=== PATIENT | female | born 1960 | race African-American/Black ===

== ENCOUNTER 2019-03-15 07:30 | Outpatient (CLI) | payer OTHER, SELFPAY ==
--- NOTE | ~2019-03-15 | US_ITS ---
EXAMINATION: US venous doppler [facility] DATE: 03/15/2019 08:35 INDICATION: Left lower limb swelling. TECHNIQUE: Grayscale ultrasound images without and with compression and Doppler ultrasound images of the left lower extremity veins were obtained. COMPARISON: None. FINDINGS: The visualized portions of left common femoral vein, profunda (deep) femoral vein, femoral vein, popl iteal vein, peroneal veins, posterior tibial veins, and greater saphenous vein outflow are patent. IMPRESSION: 1. No deep venous thrombosis. Reviewed, dictated and finalized at location A. AND ANKLE SURGEON
[2019-03-15 08:17] LABS: Blood Urea Nitrogen 14 mg/dL (7-17); Calcium 10.5 mg/dL (8.4-10.2); Carbon Dioxide 32 mmol/L (22-30); Chloride 100 mmol/L (98-107); Estimated Glomerular Filt Rate > 60; Glucose 96 mg/dL (65-105); Potassium 3.6 mmol/L (3.4-5.0); Sodium 139 mmol/L (137-145)
== END 2019-03-15 07:31 | disposition home or self-care (01) ==
LOC: ANHIMG 07:33
PROVIDERS: PCP Family Medicine; Visit Provider Physician Assistant
DX: R22.9 Localized swelling, mass and lump, unspecified (principal); R25.2 Cramp and spasm
CPT/HCPCS: 36415; 80048; 93971

== ENCOUNTER 2019-08-09 07:31 | Outpatient (CLI) | payer OTHER, SELFPAY ==
--- NOTE | ~2019-08-09 | MM_ITS ---
EXAMINATION: MM screening eunice BI w laron HISTORY: Screening mammogram TECHNIQUE: Craniocaudal and mediolateral oblique 3-D tomosynthesis images were obtained and synthetic 2-D images were generated. CAD analysis was submitted and interpreted. COMPARISON: 06/16/2018, 05/12/2017, 03/25/2016 bilateral digital screening mammogram examinations BREAST PARENCHYMAL COMPOSITION: The breasts are almost entirely fatty. FINDINGS: Scattered bilateral benign calcifications. There is no evidence of suspicious mass, calcifi cation, or architectural distortion to suggest malignancy in either breast. There has been no suspici ous interval change. IMPRESSION: 1. No mammographic evidence of malignancy. 2. Recommend routine screening mammography in one year. BI-RADS Category 2: Benign finding(s). Reviewed, dictated and finalized at location A.
== END 2019-08-09 07:32 | disposition home or self-care (01) ==
LOC: ANHIMG 07:33
PROVIDERS: PCP Family Medicine; Visit Provider Obstetrics & Gynecology
DX: Z12.31 Encounter for screening mammogram for malignant neoplasm of breast (principal)
CPT/HCPCS: 77063; 77067

== ENCOUNTER 2020-02-21 07:41 | Outpatient (CLI) | payer OTHER, SELFPAY ==
[2020-02-21 08:14] LABS: Alanine Aminotransferase 15 U/L (4-35); Alkaline Phosphatase 78 U/L (38-126); Anion Gap 4 mmol/L (8-16); Aspartate Amino Transferase 23 U/L (14-36); Bilirubin,Total 0.5 mg/dL (0.2-1.3); Blood Urea Nitrogen 12 mg/dL (7-17); Calcium 10.2 mg/dL (8.4-10.2); Carbon Dioxide 32 mmol/L (22-30); Chloride 102 mmol/L (98-107); Cholesterol 213 mg/dL (0-200); Estimated Glomerular Filt Rate > 60; Glucose 99 mg/dL (65-105); HDL Direct 53 mg/dL; Potassium 4.1 mmol/L (3.4-5.0); Sodium 138 mmol/L (137-145); Triglycerides 73 mg/dL (<150)
[2020-02-21 08:25] LABS: LDL Cholesterol Direct 120 mg/dL
[2020-02-21 08:31] LABS: T4 Thyroxine 9.44 ug/dL (5.53-11.0)
[2020-02-21 08:50] LABS: Vitamin D 25 Hydroxy 29.8 ng/mL
== END 2020-02-21 07:42 | disposition home or self-care (01) ==
PROVIDERS: PCP Family Medicine; Visit Provider Family Medicine
DX: I10 Essential (primary) hypertension (principal); E03.9 Hypothyroidism, unspecified; E55.9 Vitamin D deficiency, unspecified; Z13.6 Encounter for screening for cardiovascular disorders
CPT/HCPCS: 36415; 80053; 80061; 82306; 84436; 84443

== ENCOUNTER 2020-11-27 07:58 | Outpatient (CLI) | payer OTHER, SELFPAY ==
[2020-11-27 10:00] LABS: Alanine Aminotransferase 13 U/L (4-35); Albumin Level 4.4 g/dL (3.5-5.1); Alkaline Phosphatase 69 U/L (38-126); Anion Gap 3 mmol/L (8-16); Aspartate Amino Transferase 21 U/L (14-36); Bilirubin,Total 0.4 mg/dL (0.2-1.3); Blood Urea Nitrogen 11 mg/dL (7-17); Calcium 10.7 mg/dL (8.4-10.2); Carbon Dioxide 33 mmol/L (22-30); Chloride 104 mmol/L (98-107); Estimated Glomerular Filt Rate > 60; Glucose 100 mg/dL (65-110); Potassium 4.3 mmol/L (3.4-5.0); Sodium 140 mmol/L (137-145)
[2020-11-27 11:48] LABS: T4 Thyroxine 5.67 ug/dL (5.53-11.0)
== END 2020-11-27 07:59 | disposition home or self-care (01) ==
PROVIDERS: PCP Family Medicine; Visit Provider Family Medicine
DX: E03.9 Hypothyroidism, unspecified (principal); I10 Essential (primary) hypertension
CPT/HCPCS: 36415; 80053; 84436; 84443

== ENCOUNTER 2021-03-13 07:49 | Outpatient (CLI) | payer OTHER, SELFPAY ==
[2021-03-13 08:34] LABS: Anion Gap 1 mmol/L (8-16); Blood Urea Nitrogen 10 mg/dL (7-17); Calcium 10.4 mg/dL (8.4-10.2); Carbon Dioxide 31 mmol/L (22-30); Chloride 106 mmol/L (98-107); Cholesterol 204 mg/dL (0-200); Estimated Glomerular Filt Rate > 60; Glucose 99 mg/dL (65-110); HDL Direct 49 mg/dL; Potassium 4.1 mmol/L (3.4-5.0); Sodium 138 mmol/L (137-145); Triglycerides 90 mg/dL (<150)
[2021-03-13 08:46] LABS: LDL Cholesterol Direct 100 mg/dL
[2021-03-13 09:52] LABS: Free T4 Free Thyroxine 0.69 ng/mL (0.78-2.19)
== END 2021-03-13 07:50 | disposition home or self-care (01) ==
LOC: ANHLAB 07:52
PROVIDERS: PCP Family Medicine; Visit Provider Physician Assistant
DX: E05.90 Thyrotoxicosis, unspecified without thyrotoxic crisis or storm (principal); E78.00 Pure hypercholesterolemia, unspecified; I10 Essential (primary) hypertension
CPT/HCPCS: 36415; 80048; 80061; 84439; 84443

== ENCOUNTER 2021-05-28 07:37 | Outpatient (CLI) | payer OTHER, SELFPAY ==
--- NOTE | ~2021-05-28 | MM_ITS ---
EXAMINATION: MM screening eunice BI w laron HISTORY: Screening TECHNIQUE: Craniocaudal and mediolateral oblique 3-D tomosynthesis images were obtained and synthetic 2-D images were generated. CAD analysis was submitted and interpreted. COMPARISON: Comparison to multiple prior studies sequentially, with oldest reviewed study dated 08/08. BREAST PARENCHYMAL COMPOSITION: Breast composed of scattered areas of fibroglandular density FINDINGS: Stable benign-appearing bilateral breast calcifications. There is no evidence of suspicious mass, calcification, or architectural distortion to suggest malignancy in either breast. There has b een no suspicious interval change. IMPRESSION: 1. No mammographic evidence of malignancy. 2. Recommend routine screening mammography in one year. BI-RADS Category 2: Benign finding(s). Reviewed, dictated and finalized at location A.
== END 2021-05-28 07:38 | disposition home or self-care (01) ==
PROVIDERS: PCP Family Medicine; Visit Provider Family Medicine
DX: Z12.31 Encounter for screening mammogram for malignant neoplasm of breast (principal)
CPT/HCPCS: 77063; 77067

== ENCOUNTER 2021-08-11 13:34 | Outpatient (CLI) | payer OTHER, SELFPAY ==
--- NOTE | ~2021-08-11 | MM_ITS ---
EXAMINATION: MM diagnostic eunice LT w laron HISTORY: Left breast tenderness. TECHNIQUE: Additional 3-D tomosynthesis images of the left breast were performed and synthetic 2-D im ages were generated. CAD analysis was submitted and interpreted. COMPARISON: Comparison to multiple prior studies sequentially, with oldest reviewed study dated 03/25. BREAST PARENCHYMAL COMPOSITION: Breast composed of scattered areas of fibroglandular density FINDINGS: There are no suspicious masses, calcifications or architectural distortion in the left delma st to suggest malignancy. Stable benign-appearing breast calcifications. IMPRESSION: 1. No evidence for malignancy in the left breast. 2. Routine yearly screening mammogram and regular clinical breast examination are recommended. BI-RADS Category 1: Negative Reviewed, dictated and finalized at location A. IMPRESSION: 1. No evidence for malignancy in the left breast. 2. Routine yearly screening mammogram and regular clinical breast examination a re recommended. BI-RADS Category 1: Negative
== END 2021-08-11 13:35 | disposition home or self-care (01) ==
PROVIDERS: PCP Family Medicine; Visit Provider Obstetrics & Gynecology Gynecology
DX: N64.4 Mastodynia (principal)
CPT/HCPCS: 77061; 77065; G0279

== ENCOUNTER 2022-02-04 07:23 | Outpatient (CLI) | payer OTHER, SELFPAY ==
[2022-02-04 07:49] LABS: Alanine Aminotransferase 17 U/L (6-35); Albumin Level 4.2 g/dL (3.5-5.1); Alkaline Phosphatase 76 U/L (38-126); Anion Gap 3 mmol/L (8-16); Aspartate Amino Transferase 20 U/L (14-36); Bilirubin,Total 0.6 mg/dL (0.2-1.3); Blood Urea Nitrogen 13 mg/dL (7-17); Calcium 10.2 mg/dL (8.4-10.2); Carbon Dioxide 31 mmol/L (22-30); Chloride 109 mmol/L (98-107); Cholesterol 218 mg/dL (0-200); Estimated Glomerular Filt Rate > 60; Glucose 101 mg/dL (65-110); HDL Direct 53 mg/dL; Potassium 4.1 mmol/L (3.4-5.0); Sodium 143 mmol/L (137-145); Triglycerides 85 mg/dL (<150)
[2022-02-04 08:01] LABS: LDL Cholesterol Direct 110 mg/dL
== END 2022-02-04 07:24 | disposition home or self-care (01) ==
PROVIDERS: PCP Physician Assistant; Visit Provider Physician Assistant
DX: I10 Essential (primary) hypertension (principal)
CPT/HCPCS: 36415; 80053; 80061; 84439; 84443

== ENCOUNTER 2022-11-17 06:59 | Outpatient (CLI) | payer OTHER, SELFPAY ==
[2022-11-17 07:59] LABS: Alanine Aminotransferase 19 U/L (6-35); Albumin Level 4.2 g/dL (3.5-5.1); Alkaline Phosphatase 71 U/L (38-126); Anion Gap 3 mmol/L (8-16); Aspartate Amino Transferase 23 U/L (14-36); Bilirubin,Total 0.5 mg/dL (0.2-1.3); Blood Urea Nitrogen 11 mg/dL (7-17); Calcium 10.5 mg/dL (8.4-10.2); Carbon Dioxide 33 mmol/L (22-30); Chloride 103 mmol/L (98-107); Cholesterol 218 mg/dL (0-200); Estimated Glomerular Filt Rate > 60; Glucose 90 mg/dL (65-110); HDL Direct 56 mg/dL; Potassium 3.9 mmol/L (3.4-5.0); Sodium 139 mmol/L (137-145); Triglycerides 98 mg/dL (<150)
[2022-11-17 08:11] LABS: LDL Cholesterol Direct 110 mg/dL
[2022-11-17 09:25] LABS: Vitamin D 25 Hydroxy 42.1 ng/mL
== END 2022-11-17 07:00 | disposition home or self-care (01) ==
LOC: ANHLAB 07:02
PROVIDERS: PCP Physician Assistant; Visit Provider Physician Assistant
DX: E55.9 Vitamin D deficiency, unspecified (principal); I10 Essential (primary) hypertension; E05.90 Thyrotoxicosis, unspecified without thyrotoxic crisis or storm; E78.00 Pure hypercholesterolemia, unspecified
CPT/HCPCS: 36415; 80053; 80061; 82306; 84443

== ENCOUNTER 2022-11-24 07:59 | Outpatient (CLI) | payer OTHER, SELFPAY ==
--- NOTE | ~2022-11-24 | XR_ITS ---
Right Hand Technique: PA, oblique, and lateral views were obtained. Clinical History: Pain Findings: No acute fracture or dislocation is seen. Osseous alignment is anatomic. Degenerative versu s possible erosive change at the STT articulations. Remaining joint spaces are intact. Soft tissues a re unremarkable. Impression: . Degenerative change versus possible erosive change at the STT articulations. Remaining joint spaces are unremarkable. Reviewed, dictated and finalized at location M. Impression: . Degenerative change versus possible erosive change at the STT articulations. Remaining joint spaces are unremarkable.
--- NOTE | ~2022-11-24 | XR_ITS ---
Right wrist Technique: PA, oblique, lateral, and ulnar deviation views were obtained. Clinical History: Pain Findings: No acute fracture or dislocation is seen. Osseous alignment is anatomic. There is degenerat wagner change at the STT articulations. Soft tissues are unremarkable. Impression: No fracture or dislocation seen. Degenerative change of the STT articulations. Reviewed, dictated and finalized at location . Impression: No fracture or dislocation seen. Degenerative change of the STT articulations.
== END 2022-11-24 08:00 | disposition home or self-care (01) ==
PROVIDERS: PCP Physician Assistant; Visit Provider Physician Assistant
DX: M79.641 Pain in right hand (principal); M25.531 Pain in right wrist; R93.6 Abnormal findings on diagnostic imaging of limbs
CPT/HCPCS: 73110; 73130

== ENCOUNTER 2022-12-10 07:20 | Outpatient (CLI) | payer OTHER, SELFPAY ==
[2022-12-10 07:51] LABS: Basophils Absolute Auto 0.1 K/mm3 (0.0-0.1); Eosinophils Absolute Auto 0.1 K/mm3 (0-0.3); Eosinophils Percent Auto 1.5 % (0-4.4); Hematocrit 39.9 % (37.0-47.0); Hemoglobin 12.7 g/dL (12.0-15.0); Immature Granulocyte Absolute 0.01 K/mm3 (0.00-0.031); Immature Granulocyte Percent A 0.1 % (0-0.5); Lymphocytes Absolute Auto 2.29 K/mm3 (0.9-3.2); Lymphocytes Percent Auto 33.8 % (18.3-44.2); Mean Corpuscular HGB Conc 31.8 g/dl (32-36); Mean Corpuscular Hemoglobin 28.7 pg (26-34); Mean Corpuscular Volume 90.3 fl (80-100); Mean Platelet Volume 11.4 fl (7.4-10.4); Monocytes Absolute Auto 0.4 K/mm3 (0.1-0.6); Neutrophils Absolute Auto 3.9 K/mm3 (1.3-6.7); Neutrophils Percent Auto 57.6 % (45.5-73.1); Platelet Count Result 238 k/mm3 (150-375); Red Blood Count 4.42 M/mm3 (4.2-5.4); Red Cell Distribution Width 13.9 % (11.5-14.5); White Blood Count 6.8 K/mm3 (4.5-10.0)
[2022-12-10 08:06] LABS: Uric Acid 5.8 mg/dL (2.5-7.5)
== END 2022-12-10 07:21 | disposition home or self-care (01) ==
LOC: ANHLAB 07:22
PROVIDERS: PCP Physician Assistant; Visit Provider Physician Assistant
DX: M25.539 Pain in unspecified wrist (principal); R53.83 Other fatigue
CPT/HCPCS: 36415; 84550; 85025

== ENCOUNTER 2023-10-25 01:34 | Day surgery (SDC) | payer OTHER, SELFPAY ==
[2023-10-10 12:16] VITALS: BMI 42.3
[2023-10-25 09:22] VITALS: BP 163/102; PULSE 104; RESP 18; TEMP 36.1; O2SAT 99
[2023-10-25] MEDS: LACTATED RINGERS 1,000 ML 150 ML IV CONT (09:38)
--- NOTE | 2023-10-25 09:58 | WPDANESEPPF ---
Anes - Initial Pre Proc Eval Procedure: Operation Date: 10/25/23 10:30 Proposed Procedures p Colonoscopy - Jeronimo Johnston MD Date/Time: 10/25/23 09:58 Surgeon: Jeronimo Johnston MD Pre Op Diagnosis: Positive cologuard Patient Data Age: 63 Gender: F Height: 1.78 m Weight: 133.3 kg Last Vital Signs Temp 97.0 F L 10/25/23 09:22 Pulse 104 H 10/25/23 09:22 Resp 18 10/25/23 09:22 BP 163/102 H 10/25/23 09:22 Pulse Ox 99 10/25/23 09:22 O2 Del Method Room Air 10/25/23 09:22 Allergies Allergy/AdvReac Type Severity Reaction Status Date / Time No Known Allergies Allergy Verified 10/10/23 12:17 Home Medications Medication Instructions Recorded Confirmed Type hydrochlorothiazide 25 mg tablet 25 mg PO DAILY 10/06/23 10/10/23 History methimazole 5 mg tablet 5 mg PO DAILY 10/06/23 10/10/23 History terbinafine HCl 250 mg tablet 250 mg PO DAILY 10/06/23 10/10/23 History Patient hx anesthesia problems: none Family hx anesthesia problems: none Results Review: All pre-operative results and documents have been reviewed as part of the pre-operative evaluation. [facility] Past Medical History Medical History Acute cystitis without hematuria Body mass index [BMI] 33.0-33.9, adult (12/16/16) Body mass index [BMI] 34.0-34.9, adult (01/12/18) Chronic back pain Chronic chest wall pain [place] of foot Encounter for screening colonoscopy Encounter for screening mammogram for breast cancer Essential (primary) hypertension Ganglion cyst of right foot Hallux valgus (acquired), right foot Hammertoes of both feet Heartburn Medication monitoring encounter Other chronic pain Overweight (12/25/15) Plantar fascial fibromatosis of both feet Stress incontinence (female) (male) Thyrotoxicosis with toxic multinodular goiter without thyrotoxic crisis or storm Thyrotoxicosis, unspecified without thyrotoxic crisis or storm Vitamin D deficiency, unspecified Surgical History Surgical History H/O tubal ligation History of appendectomy Family History Family History Mother Family history of thyroid disease Cerebrovascular accident Family history of arthritis Family history of heart disease in male family member before age 55 Family history of seizure disorder Patient's mother is Sibling Family history of thyroid disease Patient's sister is in good health Father Family history of alcoholism Family history of lung cancer Other HLD (hyperlipidemia) Heart disease Hypertension Social History Social History Smoking packs per day: 1 Smoking cigarettes per day: 20.0 Years smoked: 47 Smoking pack-years: 47.00 Smoking status: Current every day smoker Tobacco type: cigarettes Alcohol intake: current Substance use: never Substance use type: does not use Living arrangements: with family Occupation/Education: occupation Gender identity (if verbalized by the patient): Female Spiritual care concerns: No Anes - Eval Final PreProcedure Day of Procedure 10/25/23 09:58 Patient weight: morbidly obese Heart: regular rate and rhythm Lungs: clear to auscultation Airway: Mallampati scale class III Neurological: alert and oriented Last oral intake: >/= 8 hours ASA classification: III Emergent: no Anesthetic plan: proceed Anesthesia type and monitoring: general GIVS and standard monitoring Results Review: All pre-operative results and documents have been reviewed as part of the pre-operative evaluation. Informed Consent: The patient's anesthetic plan and its attendant risks and benefits were discussed with the patient/family/POA. Questions were solicited and answers provided to the satisfaction of the patient/
--- NOTE | 2023-10-25 10:27 | PM.HPGS ---
History of Present Illness History of Present Illness Consent: Risks, benefits, and alternatives have been discussed and questions answered. Patient agrees to proceed with procedure. Chief complaint: Positive cologuard Narrative: Linda Lennon is a 63 year old female here for first colonoscopy, + cologuard Review of Systems Review of Systems: All systems reviewed & are unremarkable except as noted in HPI and below PMFSH Past Medical History Medical History (Updated 10/25/23 @ 10:27 by Jeronimo Johnston MD) Acute cystitis without hematuria Body mass index [BMI] 33.0-33.9, adult (12/16/16) Body mass index [BMI] 34.0-34.9, adult (01/12/18) Chronic back pain Chronic chest wall pain [place] of foot Encounter for screening colonoscopy Encounter for screening mammogram for breast cancer Essential (primary) hypertension Ganglion cyst of right foot Hallux valgus (acquired), right foot Hammertoes of both feet Heartburn Medication monitoring encounter Other chronic pain Overweight (12/25/15) Plantar fascial fibromatosis of both feet Positive colorectal cancer screening using Cologuard test Stress incontinence (female) (male) Thyrotoxicosis with toxic multinodular goiter without thyrotoxic crisis or storm Thyrotoxicosis, unspecified without thyrotoxic crisis or storm Vitamin D deficiency, unspecified Surgical History Surgical History H/O tubal ligation History of appendectomy Family History Family History Mother Family history of thyroid disease Cerebrovascular accident Family history of arthritis Family history of heart disease in male family member before age 55 Family history of seizure disorder Patient's mother is Sibling Family history of thyroid disease Patient's sister is in good health Father Family history of alcoholism Family history of lung cancer Other HLD (hyperlipidemia) Heart disease Hypertension Social History Social History Smoking packs per day: 1 Smoking cigarettes per day: 20.0 Years smoked: 47 Smoking pack-years: 47.00 Smoking status: Current every day smoker Tobacco type: cigarettes Alcohol intake: current Substance use: never Substance use type: does not use Living arrangements: with family Occupation/Education: occupation Gender identity (if verbalized by the patient): Female Spiritual care concerns: No Meds Home Medications and Allergies Home Medications Medication Instructions Recorded Confirmed Type hydrochlorothiazide 25 mg tablet 25 mg PO DAILY 10/06/23 10/10/23 History methimazole 5 mg tablet 5 mg PO DAILY 10/06/23 10/10/23 History terbinafine HCl 250 mg tablet 250 mg PO DAILY 10/06/23 10/10/23 History Allergies Allergy/AdvReac Type Severity Reaction Status Date / Time No Known Allergies Allergy Verified 10/10/23 12:17 Vital Signs Vital Signs - 24 hr 10/25/23 09:22 Temperature 97.0 F L Pulse Rate 104 H Respiratory Rate 18 Blood Pressure 163/102 H Pulse Oximetry 99 Oxygen Delivery Room Air Exam Const: General: comfortable and no acute distress HENMT: Face/Nose/Sinus: Normal nares present Eyes: General: appearance normal, both eyes and all related structures Neck: Neck: no JVD Resp: Auscultation: clear to auscultation bilaterally Cardio: Rate: regular rate Rhythm: regular rhythm GI: Inspection: non-distended GI Palp: Yes Soft to palpation Skin: General skin exam: normal color Neuro: General: gait normal Speech: normal speech Extrem: General: normal to inspection Psych: Mental Status: mental status grossly normal Assessment and Plan Assessment and plan (1) Positive colorectal cancer screening using Cologuard test: Code(s): R19.5 - Other fecal abnormalities Statu
[2023-10-25 10:54] VITALS: BP 119/82; PULSE 81; RESP 24; O2SAT 97
[2023-10-25 11:04] VITALS: BP 143/98; PULSE 84; RESP 22; O2SAT 100
[2023-10-25 11:14] VITALS: BP 146/101; PULSE 74; RESP 18; O2SAT 98
== END 2023-10-25 11:24 | disposition home or self-care (01) ==
PROVIDERS: PCP Physician Assistant; Visit Provider Internal Medicine Gastroenterology
PROC: 0DJD8ZZ Inspection of Lower Intestinal Tract, Via Natural or Artificial Opening Endoscopic (ICD-10-PCS; CPT 45378; principal; 2023-10-25 10:30)
DX: D12.2 Benign neoplasm of ascending colon (principal); D12.4 Benign neoplasm of descending colon; K64.8 Other hemorrhoids; I10 Essential (primary) hypertension; N39.3 Stress incontinence (female) (male); E55.9 Vitamin D deficiency, unspecified; M54.9 Dorsalgia, unspecified; G89.29 Other chronic pain; R07.89 Other chest pain; M20.11 Hallux valgus (acquired), right foot; M20.42 Other hammer toe(s) (acquired), left foot; M20.41 Other hammer toe(s) (acquired), right foot; M72.2 Plantar fascial fibromatosis; F17.210 Nicotine dependence, cigarettes, uncomplicated; E66.01 Morbid (severe) obesity due to excess calories; Z68.41 Body mass index [BMI] 40.0-44.9, adult; Z98.890 Other specified postprocedural states; Z98.51 Tubal ligation status; Z80.1 Family history of malignant neoplasm of trachea, bronchus and lung; Z82.49 Family history of ischemic heart disease and other diseases of the circulatory system
CPT/HCPCS: 45385; 88305; J2001; J2704; J7120

== ENCOUNTER 2023-11-10 08:30 | Outpatient (CLI) | payer OTHER, SELFPAY ==
--- NOTE | ~2023-11-10 | NM_ITS ---
EXAMINATION: NM katya stress w perfusion DATE: 11/10/2023 17:04 CDT INDICATION: Chest pain TECHNIQUE: Rest images were obtained following intravenous administration of 30 mCi Tc99m tetrofosmin (Myoview). The patient was infused intravenously with Lexiscan (regadenoson). Then, 9 point mCi Tc99 m tetrofosmin (Myoview) was administered intravenously, and stress images were obtained. Data was rec onstructed into short axis and horizontal and vertical long axis SPECT images. Gated SPECT images wer e also obtained. COMPARISON: None. FINDINGS: There is moderate sized reversible perfusion abnormality of the anterior and lateral vickers of the left ventricle, consistent with ischemia. No fixed perfusion abnormalities.. There is no segm ental wall motion abnormality. Left ventricular ejection fraction measures 79%. IMPRESSION: 1. Moderate size reversible perfusion abnormality of the anterior and lateral vickers of the left ventr icle, consistent with ischemia.. 2. Normal left ventricular ejection fraction measuring 79%. Reviewed, dictated and finalized at location B. IMPRESSION: 1. Moderate size reversible perfusion abnormality of the anterior and lateral w alls of the left ventricle, consistent with ischemia.. 2. Normal left ventricular ejection fraction measuring 79%.
--- NOTE | 2023-11-10 08:33 | ECHO_ITS ---
Patient Info Name: Linda Lennon Age: 63 years : 1960 Gender: Female Ht: 70 in Wt: 290 lbs BSA: 2.61 m2 HR: 83 bpm BP: 138 / 99 mmHg Technical Quality: Poor Exam Date: 11/10/2023 8:46 AM Exam Location: Echo Lab Patient Status: Outpatient Admit Date: 11/10/2023 Staff Ordering Physician: Ac Almaguer DO Juvenile Detention Officer: Stephanie Archer RDCS Attending Provider: Ac Almaguer DO Referring Physician: Tripp KENT; Exam Type: CA echo dop color flow w con Study Info Indications R60.0 - Localized edema Complete two-dimensional, color flow and Doppler transthoracic echocardiogram is performed with contrast to opacify the left ventricle and to improve the deliniation of the left ventricle endocardial borders. Contrast/Agitated Saline Contrast/Ag. Saline: Definity Amount: 3.00 ml Administered By: Stephanie Archer RDCS New IV Access: Inner Forearm and Left Reason for Poor Study: patient body habitus Summary 1. Definity contrast administered improved wall motion interpretation. 2. Left ventricular chamber dimension is normal. 3. Left ventricular systolic function is normal, estimated at 60-65%. 4. There is mild concentric increased left ventricular wall thickness. 5. The left ventricular diastolic function is grade I diastolic dysfunction. 6. E/e' 7 is not elevated. 7. The mitral valve has mildly calcified annulus. 8. There is trace tricuspid valve regurgitation. 9. No pulmonary hypertension, estimated pulmonary arterial systolic pressure is 12 mmHg. Left Ventricle E/e' 7 is not elevated. Definity contrast administered improved wall motion interpretation. Left ventricular chamber dimension is normal. Left ventricular systolic function is normal, estimated at 60-65%. There is mild concentric increased left ventricular wall thickness. The left ventricular diastolic function is grade I diastolic dysfunction. Right Ventricle Right ventricular chamber dimension is normal. Right ventricular systolic function is normal. Left Atria Left atrial chamber dimension is normal. Right Atria Right atrial chamber dimension is normal. Aortic Valve The aortic valve is trileaflet. There is no aortic valve stenosis. There is no aortic valve regurgitation. Pulmonic Valve There is no pulmonic regurgitation. Mitral Valve The mitral valve has mildly calcified annulus. There is no mitral valve stenosis. There is no mitral valve regurgitation. Tricuspid Valve There is trace tricuspid valve regurgitation. No pulmonary hypertension, estimated pulmonary arterial systolic pressure is 12 mmHg. Pericardium/Pleural There is no pericardial effusion. Inferior Vena Cava Normal inferior vena cava with >50% collapse upon inspiration consistent with normal right atrial pressure, 5 mmHg. Aorta The aortic root size at the sinus of Valsalva is normal. Left Ventricular Outflow Tract Name Value Normal LVOT 2D LVOT Diameter 1.99 cm LVOT Doppler LVOT Peak Gradient 4 mmHg LVOT Mean Gradient 3 mmHg LVOT VTI 19.33 cm LVOT VTI/AV VTI Ratio 0.[address]
--- NOTE | 2023-11-10 08:34 | EST_ITS ---
Patient Info Name: Linda Lennon Age: 63 years : 1960 Gender: Female Ht: 70 in Wt: 290 lbs BSA: 2.61 m2 Exam Date: 11/10/2023 10:36 AM Exam Location: Echo Lab Patient Status: Outpatient Admit Date: 11/10/2023 Staff Ordering Physician: Ac Almaguer DO Attending Provider: Ac Almaguer DO Exercise Technologist: Aurea Acosta RDCS Exercise Physician: Ac Almaguer DO Exam Type: CA stress katya w NM Study Info Indications R07.9 - Chest pain, unspecified R60.0 - Localized edema A regadenoson stress test was performed. Summary 1. 1. Negative lexiscan stress test for ischemic ST changes by ECG criteria. 2. 2. Stable hemodynamics throughout the test. 3. 3. Nuclear scan to follow and will be reported separately. Please correlate with it. 4. 4. Patient informed of the above results. Protocol: Lexiscan Stress ECG Details Stage: REST Duration (min): 16 min : 30 sec HR (bpm): 75 SBP (mmHg): 135 DBP (mmHg): 87 Stage: REST Duration (min): 22 min : 11 sec HR (bpm): 77 SBP (mmHg): 135 DBP (mmHg): 87 Stage: STAGE 1 Duration (min): 0 min : 59 sec HR (bpm): 97 SBP (mmHg): 145 DBP (mmHg): 95 Stage: RECOVERY Duration (min): 1 min : 0 sec HR (bpm): 93 SBP (mmHg): 145 DBP (mmHg): 95 Stage: RECOVERY Duration (min): 2 min : 0 sec HR (bpm): 89 SBP (mmHg): 145 DBP (mmHg): 95 Stage: RECOVERY Duration (min): 3 min : 0 sec HR (bpm): 91 SBP (mmHg): 134 DBP (mmHg): 91 Stage: RECOVERY Duration (min): 3 min : 18 sec HR (bpm): 90 SBP (mmHg): 134 DBP (mmHg): 91 Rest HR: 77 bpm Peak HR: 101 bpm Rest Sys BP: 135 mmHg Peak Sys BP: 145 mmHg Max Pred HR: 157 bpm % Max Pred HR: 64 % Target HR: 133 bpm Max RPP: 14,645 bpm*mmHg Termination Reason: Completed protocol Cardiac Symptoms: Shortness of breath Total Time: 1 min : 0 sec Rest Roe BP: 87 mmHg Peak Roe BP: 95 mmHg Total Dose: 0.4 mg Resting ECG Sinus rhythm. Stress ECG No ST changes. Arrhythmias None. Report Signatures
== END 2023-11-10 08:31 | disposition home or self-care (01) ==
LOC: ANHCARD 08:31
PROVIDERS: PCP Physician Assistant; Visit Provider Internal Medicine Cardiovascular Disease
DX: R60.0 Localized edema (principal); I51.89 Other ill-defined heart diseases; I34.81 Nonrheumatic mitral (valve) annulus calcification
CPT/HCPCS: 78452; 93017; A9502; C8929; J2785

== ENCOUNTER 2023-12-15 03:02 | Day surgery (SDC) | payer OTHER, SELFPAY ==
[2023-12-14 11:50] VITALS: BMI 41.6
[2023-12-15] VITALS (13 sets, daily range): BP systolic 115–151; BP diastolic 83–102; PULSE 82–105; RESP 20–28; TEMP 36.2; O2SAT 93–97; BMI 41.6
[2023-12-15 09:36] LABS: Basophils Absolute Auto 0.1 K/mm3 (0.0-0.1); Basophils Percent Auto 0.9 % (0.2-1.2); Eosinophils Absolute Auto 0.1 K/mm3 (0-0.3); Eosinophils Percent Auto 1.2 % (0-4.4); Hematocrit 40.6 % (37.0-47.0); Hemoglobin 13.2 g/dL (12.0-15.0); Immature Granulocyte Absolute 0.02 K/mm3 (0.00-0.031); Immature Granulocyte Percent A 0.3 % (0-0.5); Lymphocytes Absolute Auto 1.61 K/mm3 (0.9-3.2); Mean Corpuscular HGB Conc 32.5 g/dl (32-36); Mean Corpuscular Hemoglobin 29.8 pg (26-34); Mean Corpuscular Volume 91.6 fl (80-100); Mean Platelet Volume 11.4 fl (7.4-10.4); Monocytes Absolute Auto 0.3 K/mm3 (0.1-0.6); Monocytes Percent Auto 5.7 % (2.6-8.5); Neutrophils Absolute Auto 3.7 K/mm3 (1.3-6.7); Neutrophils Percent Auto 63.9 % (45.5-73.1); Platelet Count Result 211 k/mm3 (150-375); Red Blood Count 4.43 M/mm3 (4.2-5.4); Red Cell Distribution Width 14.2 % (11.5-14.5); White Blood Count 5.8 K/mm3 (4.5-10.0)
[2023-12-15 09:47] LABS: Anion Gap 8 mmol/L (4-12); Blood Urea Nitrogen 10 mg/dL (7-17); Calcium 10.5 mg/dL (8.4-10.2); Carbon Dioxide 30 mmol/L (22-30); Chloride 102 mmol/L (98-107); Estimated CRCL calculation 83 ml/min; Estimated Glomerular Filt Rate > 60; Glucose 104 mg/dL (65-110); Potassium 3.3 mmol/L (3.4-5.0); Sodium 140 mmol/L (137-145)
--- NOTE | 2023-12-15 10:29 | WPDHPUPDATE1 ---
History and Physical Update Update Date/Time: 12/15/23 10:29 History and Physical has been reviewed, including an updated exam of the patient. There are NO changes in the patient's condition. Risks, benefits, and alternatives have been discussed and questions answered. Patient agrees to proceed with procedure.
--- NOTE | 2023-12-15 10:29 | WPDMODSED ---
Moderate Sedation Note-Pt Data Patient Data Diagnosis: Abnormal stress test Present Complaint: Abnormal stress test Procedure to be performed/Plan: Coronary angiography, left heart cath, +/- PCI Allergies Allergy/AdvReac Type Severity Reaction Status Date / Time No Known Allergies Allergy Verified 12/15/23 09:08 Home Medications Medication Instructions Recorded Confirmed Type hydrochlorothiazide 25 mg tablet 25 mg PO DAILY 10/06/23 12/14/23 History methimazole 5 mg tablet 5 mg PO DAILY 10/06/23 12/14/23 History aspirin 81 mg tablet,delayed 81 mg PO DAILY 11/17/23 12/14/23 History release pravastatin 10 mg tablet 10 mg PO DAILY #30 tabs 11/17/23 12/14/23 Rx Current Medications: Active Medications Sodium Chloride (Normal Saline Iv) 500 mls @ 100 mls/hr IV CONT .Q5H HANDY Sedation/Anesthesia: No previous sedation/anesthesia problems (including family history). [facility] Past Medical History Medical History Acute cystitis without hematuria Body mass index [BMI] 33.0-33.9, adult (12/16/16) Body mass index [BMI] 34.0-34.9, adult (01/12/18) Chronic back pain Chronic chest wall pain [place] of foot Encounter for screening colonoscopy Encounter for screening mammogram for breast cancer Essential (primary) hypertension Ganglion cyst of right foot Hallux valgus (acquired), right foot Hammertoes of both feet Heartburn Medication monitoring encounter Other chronic pain Overweight (12/25/15) Plantar fascial fibromatosis of both feet Positive colorectal cancer screening using Cologuard test Stress incontinence (female) (male) Thyrotoxicosis with toxic multinodular goiter without thyrotoxic crisis or storm Thyrotoxicosis, unspecified without thyrotoxic crisis or storm Vitamin D deficiency, unspecified Surgical History Surgical History H/O tubal ligation History of appendectomy Family History Family History Mother Family history of thyroid disease Cerebrovascular accident Family history of arthritis Family history of heart disease in male family member before age 55 Family history of seizure disorder Patient's mother is Sibling Family history of thyroid disease Patient's sister is in good health Father Family history of alcoholism Family history of lung cancer Other HLD (hyperlipidemia) Heart disease Hypertension Social History Social History Smoking packs per day: 1 Smoking cigarettes per day: 20.0 Years smoked: 40 Smoking pack-years: 40.00 Smoking status: Current every day smoker Tobacco type: cigarettes Second hand tobacco smoke exposure: Yes Alcohol intake: current Substance use: never Substance use type: does not use Do You Feel Safe in your Home?: Yes Lack of Transportation: No Lack of Food: Never True Current Housing: I Have Housing Concerned About Future Housing: No Difficulty Paying Gas/Electric Bills: No Difficulty Paying for Meds: No Currently Unemployed: No Education: Trade/Vocational Certificate Difficulty w/ Childcare or Family Care: No Living arrangements: with family Occupation/Education: occupation Gender identity (if verbalized by the patient): Female Spiritual care concerns: No Mod Sed Physical Exam Physical Exam Pre Procedural Exam: Normal: Appearance, Lungs, Heart Rate, Heart Rhythm, Neuro Exam, Extremities and Skin Hours since solid foods: 12 Hours since liquid intake: 8 Mallampati Classification: class III Internal Medicine - PN: Obj Da Vital Signs Vital Signs: Vital Signs - 24 hr 12/15/23 09:09 Temperature 36.2 C L Pulse Rate 101 H Respiratory Rate 24 H Blood Pressure 151/99 H Pulse Oximetry 94 Oxygen Delivery Room Air Meds/Results Medications: Active Medications Generic Name Dose Route Start Last Admin Trade Name Freq PRN Reason Stop Dose Admin Sodium Chloride 500 mls @ 100 mls/hr 12/15/23 08:30 Normal Saline Iv IV CONT .Q5H HANDY Labs 12/15/23 09:15 12/15/23 09:15 Labs: Laboratory Results - last 24 hr 12/15/23 09:15 WBC 5.8 RBC 4.43 Hgb 13.2 Hct 40.6 MCV 91.6 MCH 29.8 MCHC 32.5 RDW 14.2 Plt Count 211 MPV 11.4 H Immature Gran % (Auto) 0.3 Neut % (Auto) 63.9 Lymph % (Auto) 28.0 [place] % (Auto) 5.7 Eos % (Auto) 1.2 Baso % (Auto) 0.9 Lymph # (Auto) 1.61 [place] # (Auto) 0.3 Eos # (Auto) 0.1 Baso # (Auto) 0.1 Abs Immat Gran (auto) 0.02 Absolute Neuts (auto) 3.7 Absolute Nucleated RBC 0.000 Nucleated RBC % 0.0 Sodium 140 Potassium 3.3 L Chloride 102 Carbon Dioxide 30 Anion Gap 8 BUN 10 Creatinine 0.90 Estim Creat Clear Calc 83 Estimated GFR > 60 Glucose 104 Calcium 10.5 H ASA Classification/Sedation ASA Classification/Sedation ASA Class: III Emergent: No Risks: Risks, benefits and alternatives explained and patient/family accepted plan for sedation. Patient re-evaluated immediately prior to sedation.
--- NOTE | 2023-12-15 10:30 | WPDCARDPROC ---
Cardiac Cath Procedure Note Date of procedure:: 12/15/23 Performing physician:: CATHETERIZATION LABORATORY REPORT Procedure Date: 12/15/2023 Direct Sales Representative: Charisma Paz M.D., [facility]? Referring Physician: Ac Almaguer M.D. ? Anesthesia: Versed and Fentanyl were ordered and given in my presence at 10:44, procedure ended at 10:57. Supervision of nurse monitored moderate sedation with Versed and Fentanyl was provided for 13 minutes. Total of Versed 2mg and Fentanyl 75mcg were administered by the Automotive Tire Technician RN Artis Carlisle. Pre-op Diagnosis: Coronary artery disease Post-op Diagnosis: Mild non-obstructive coronary artery disease Procedure(s): 1. Moderate sedation 2. Ultrasound-guided access of the right radial artery 3. Coronary angiography Access Site: Right radial artery Brief History and Clinical Indications: Patient is a 63 year old female who is referred for [facility] for abnormal stress test. All risks, benefits and alternatives to left heart catheterization with or without percutaneous coronary intervention was discussed at length with the patient. Risk of complications including but not limited to bleeding, infection, arrhythmia, stroke, worsening kidney function, blood loss, groin hematoma, limb loss, emergency coronary artery bypass grafting, and even were discussed with the patient and all questions were answered. The patient understood and wished to proceed. Time out called, patient name, date of , medical record number, allergies, procedure performed, identify Direct Sales Representative, patient and staff member concurred with accurate data, procedure carried on. Findings: LEFT HEART CATHETERIZATION FINDINGS: 1. Left main: The left main coronary artery is widely patent without any significant obstructive disease. 2. Left anterior descending: The LAD and the diagonal branches have mild luminal irregularities without any significant obstructive angiographic disease. 3. Ramus: Mild disease in the mid portion. 4. Left circumflex: The left circumflex artery has mild luminal irregularities without any significant obstructive angiographic disease. 5. Right coronary artery: The RCA is the dominant vessel. The mid portion of the RCA has a mild 40% stenosis. Description of Procedure: Informed consent signed and placed in the chart. Patient transferred to superintendent geophysical laboratory room. Prepped and draped in usual sterile fashion. 2% lidocaine injected subcutaneously in right wrist area. 22-gauge venipuncture catheter used to access the right radial artery under ultrasound guidance. 6-FR slender sheath placed in right radial artery. Nitroglycerine and Verapamil were given intraarterial through the sheath. Versacore wire advanced under fluoroscopy 5F Tig 4 diagnostic catheter engaged Left Main Coronary Artery. 5F Tig 4 diagnostic catheter engaged Right Coronary Artery Multiple orthogonal angiogram obtained and reviewed Hemostasis was achieved by application of TR band. Disposition: Home Plan: The patient will be monitored in the recovery area. Discharge home after post cath bed rest is completed. The above findings were discussed with the referring physician. Continue aggressive medical therapy and risk factor modification. ? Charisma Paz M.D. Interventional Cardiology
== END 2023-12-15 14:09 | disposition home or self-care (01) ==
PROVIDERS: PCP Physician Assistant; Visit Provider Internal Medicine
PROC: (CPT 93454; principal; 2023-12-15 10:00)
DX: I25.10 Atherosclerotic heart disease of native coronary artery without angina pectoris (principal); R94.39 Abnormal result of other cardiovascular function study; F17.210 Nicotine dependence, cigarettes, uncomplicated
CPT/HCPCS: 36415; 80048; 85025; 93454; C1769; C1887; C1894; J1644; J2003; J2250; J2305; J3010; J7040

== ENCOUNTER 2024-04-05 07:49 | Outpatient (CLI) | payer OTHER, SELFPAY ==
--- OUTSIDE RECORDS SUMMARY | 2024-04-05 07:56 | XMS_ITS | Clinical Summary ---
Author Organization [facility] Address [address] [place] [address] Care Team Providers Care Application Integration Specialist Name Role Phone Chapis Shultz PA-C Primary Care Provider [phone] Allergies No known active allergies Medications varenicline, starter pack, (CHANTIX STARTING MONTH ) 0.5 MG X 11 & 1 MG X 42 tabletIndicati ons:Encounter for smoking cessation counseling Take as directed 53 each 04/11/19 24 Active atorvastatin (LIPITOR) 10 MG tabletIndicati ons:Hyperchole sterolemia take 1 tablet by mouth nightly at bedtime 90 tablet 1 05/27/19 24 Active terbinafine (LAMISIL) 250 MG tabletIndicati ons:Tinea unguium Take 1 tablet (250 mg total) by mouth daily. 90 tablet 07/31/19 24 Active methIMAzole (TAPAZOLE) 5 MG tabletIndicati ons:Hypothyroi d take 1 & 1/2 (one & one-half) tablets by mouth once daily 45 tablet 08/25/19 24 Active nirmatrelvir & ritonavir 300/100 (PAXLOVID) 20 x 150 MG & 10 x 100MG tablet packIndication s:COVID Take TWO nirmatrelvir 150 mg tablet(s) along with ONE ritonavir 100 mg tablet, with all three tablets taken together, twice daily for 5 days. May take with or without food. Swallow tablets whole. Do not chew, break or crush.. 30 tablet 11/13/19 24 Active ezetimibe (ZETIA) 10 MG tabletIndicati ons:Hyperchole sterolemia Take 1 tablet (10 mg total) by mouth daily. 90 tablet 1 02/25/19 25 Active hydroCHLOROthi azide (HYDRODIURIL) 25 MG tabletIndicati ons:Benign essential HTN TAKE 1 TABLET BY MOUTH ONCE DAILY IN THE MORNING 90 tablet 1 03/27/19 25 Active hydroCHLOROthi azide (HYDRODIURIL) 25 MG tabletIndicati ons:Benign essential HTN TAKE 1 TABLET BY MOUTH ONCE DAILY IN THE MORNING 30 tablet 02/28/19 25 025 Discontinued Active Problems Problem Noted Date Diagnosed Date Tobacco abuse 04/11/2023 Postmenopause 04/11/2023 Large breasts 04/11/2023 Encounter for smoking cessation counseling 04/11 Hyperthyroidism 03/09/2021 Benign essential HTN 03/09/2021 Hypercholesterolemia 03/09/2021 Encounters Date Type Department Care Team Description 04/03/2024 Orders Only [address] [phone] Chapis Shultz PA-C 04/03/[address] [address] Chapis Shultz PA-C Lab Order 02/26/[address] [address] Chapis Shultz PA-C Medication Information from Last 3 Months Immunizations Name Administration Dates Next Due Hepatitis B (Generic: Adult) 12/18/2012,08/10/19 13,07/05/2012 Influenza Adult (Generic) 12/16/2022,01/05/2022, 11/29/2020 Pneumococcal (Pneumovax 23) 04/11/2023 Tdap (Adacel) 04/11/2023 Family History Medical History Relation Comments Cancer Father Lung cancer Arthritis Mother Arthritis Sister 1 Hypertension Sister 2 Relation Status Comments Father Mother Sister 1 Sister 2 Social History Tobacco Use Types Packs/Day Years Used Date Smoking Tobacco: Every Day Cigarettes 1 15 Smokeless Tobacco: Never Tobacco Cessation:Ready to Q uit: No; Counseling Given: Yes Alcohol Use Standard Drinks/Week Comments Not Currently 0 (1 standard drink = 0.6 oz pur e alcohol) PHQ-2 Answer Date Recorded Patient Health Questionnaire-2 Score 0 04/11/2023 Comments Unknown Sex and Gender Information Value Date Recorded Sex Assigned at Not on file Legal Sex Female 7:38 PM CDT Gender Identity Not on file Sexual Orientation Not on file Last Filed Vital Signs Vital Sign Reading Time Taken Comments Blood Pressure 139/86 04/11/2023 4:23 PM BREED TO WEAN PRODUCTION TECHNICIAN Pulse 87 04/11/2023 4:23 PM BREED TO WEAN PRODUCTION TECHNICIAN Temperature 36.6 C (97.9 F) 04/11/2023 4:23 PM BREED TO WEAN PRODUCTION TECHNICIAN Respiratory Rate - - Oxygen Saturation 96% 04/11/2023 4:23 PM BREED TO WEAN PRODUCTION TECHNICIAN Inhaled Oxygen Concentration - - Weight 129 kg (284 lb 6.4 oz) 04/11/2023 4:23 PM BREED TO WEAN PRODUCTION TECHNICIAN Height 177.8 cm (5' 10 ) 03/09/2021 12:46 PM BREED TO WEAN PRODUCTION TECHNICIAN Body Mass Index 40.81 03/09/2021 12:46 PM BREED TO WEAN PRODUCTION TECHNICIAN Plan of Treatment Health Maintenance Due Date Last Done Comments Cervical Cancer Screening Pap Smear (Age 30 to 64) Every 3 Years 1960 Hepatitis C 1978 Cervical Cancer Screening Pap with HPV Testing (Age 30 to 64) Every 5 Years 1990 Mammogram Screening 08/12/2023 08/11/2021, 05/28/2021, 08/09/2019, Additional history exists COVID-19 Vaccine ( season) 2023 02/23/2020, 02/02/2020 Influenza Adult (#1) 2023 12/16/2022, 01/05/2022, 11/29/2020 PHQ-2 (Physician [place]) 02/14/2024 04/11/2023 Cervical Cancer Screening with HPV 04/11/2024 Postponed from 1990 (Going to Outside Clinic) Pneumococcal Vaccine: Pediatrics (0 to 5 Years) and At-Risk Patients (6 to 64 Years) (2 of 2 - PCV) 04/11/2024 04/11/2023 RSV Immunization or 60+ Years (1 - Risk 60-74 years 1-dose series) 04/11/2024 Postponed fro m 2020 (Going to Outside Clinic) Zoster Vaccines (1 of 2) 04/11/2024 Pos tponed from 2010 (Going to Outside Clinic) Annual Physical 05/01/2024 Postponed fr om 08/20/1963 (Going to Outside Clinic) DTaP, Tdap and Td Vaccines (2 - Td or Tdap) 04/11/2033 04/11/2023 Colorectal Cancer Screening Colonoscopy (10 Years) 10/24/2033 10/25/2023 Colorectal Cancer Screening FIT-DNA (3 Years) Discontinued 06/15/2023, 06/15/2023 Meningococcal B Vaccine Aged Out No l onger eligible based on patient's age to complete this topic Meningococcal Vaccine Aged Out No sowmya wendy eligible based on patient's age to complete this topic RSV Immunizations Under 20 Months Aged Out No longer eligible based on patient's age to complete this topic Procedures Procedure Name Priority Date/Time Associated Diagnosis Comments COLONOSCOPY GENERIC (SCAN ORDER) 10/25/2023 COLOGUARD ([employer] SCIENCE) Routine 06/15/2023 10:15 AM CDT Screening for colon cancer MAMMOGRAM GENERIC (SCAN ORDER) 08/11/2021 from Last 3 Months or Most Recently Relevant to Health Maintenance Results * COLONOSCOPY GENERIC (SCAN ORDER) (10/25/2023) 10/25/2023 [facility] Scanned SCANNING Final Resu lt * (ABNORMAL) COLOGUARD (EXACT SCIENCE) (06/15/2023 10:15 AM CDT) COLOGUARD RESULT Positive( A) Negative [facility] (CLIA #:[id number]) Comment: POSITIVE TEST RESULT. A positive Cologuard result should be followed with a colonoscopy or visual examination of the colon. The normal value (reference range) for this assay is negative. TEST DESCRIPTION: Composite algorithmic analysis of stool DNA-biomarkers with hemoglobin immunoassay. Quantitative values of individual biomarkers are not reportable and are not associated with individual biomarker result reference ranges. Cologuard is intended for colorectal cancer screening of adults of either sex, 45 years or older, who are at average-risk for colorectal cancer (CRC). Cologuard has been approved for use by the U.S. FDA. The performance of Cologuard was established in a cross sectional study of average-risk adults aged 50-84. Cologuard performance in patients ages 45 to 49 years was estimated by sub-group analysis of near-age groups. Colonoscopies performed for a positive result may find as the most clinically significant lesion: colorectal cancer [4.0%], advanced adenoma (including sessile serrated polyps greater than or equal to 1cm diameter) [20%] or non- advanced adenoma [31%]; or no colorectal neoplasia [45%]. These estimates are derived from a prospective cross-sectional screening study of 10,000 individuals at average risk for colorectal cancer who were screened with both Cologuard and colonoscopy. (Eloise Rodríguez et al, N Engl J Med 2014;370(14):9046-8738.) Cologuard may produce a false negative or false positive result (no colorectal cancer or precancerous polyp present at colonoscopy follow up). A negative Cologuard test result does not guarantee the absence of CRC or advanced adenoma (pre-cancer). The current Cologuard screening interval is every 3 years. ([place] [employer] and U.S. Multi-Society Task Force). Cologuard performance data in a 10,000 patient pivotal study using colonoscopy as the reference method can be accessed at the following location: www.[employer]/results. Additional description of the Cologuard test process, warnings and precautions can be found at www.[employer].com. STOOL STOOL SPECIMEN / Unknown 06/15/2023 10:15 AM CDT 06/16/2023 10:09 AM CDT us Chapis Shultz PA-C BODY FLUIDS AND STOOLS ORD ERABLES Final Result [facility] ([facility]) [address] [place] [address], [facility] (CLIA #:[id number]) [address] [place] [address] * MAMMOGRAM GENERIC (08/11/2021) Anatomical Region Laterality Modality Other 08/11/2021 Narrative 08/11/2021 Ordered by an unspecified provider. us Documents Scanned SCANNING Final Result from Last 3 Months or Most Recently Relevant to Health Maintenance [id number] Care Teams Application Integration Specialist Relationship Specialty Start Date End Date Chapis Shultz PA-C [address] [place] [address] [phone] PCP - General PHYSICIAN DOUBLE BACKER 12/09/20
--- OUTSIDE RECORDS SUMMARY | 2024-04-05 07:56 | XMS_ITS | Encounter Summary ---
Author Organization [facility] Address [facility] [place] [address] Care Team Providers Care Ortho Nurse Name Role Phone Chapis Shultz PA-C Primary Care Provider [phone]- [phone] Reason for Visit * Reason Onset Date Comments Lab Order 04/03/2024 Encounter Details Date Type Department Care Team (Late st Contact Info) Description 04/03/2024 Telephone [facility] Family Medicine - [place] [address] Chapis Shultz PA-C [address] [place] [phone] Lab Order Social History Tobacco Use Types Packs/Day Years Used Date Smoking Tobacco: Every Day Cigarettes 1 15 Smokeless Tobacco: Never Alcohol Use Standard Drinks/Week Comments Not Currently 0 (1 standard drink = 0.6 oz pur e alcohol) PHQ-2 Answer Date Recorded Patient Health Questionnaire-2 Score 0 04/11/2023 Comments Unknown Sex and Gender Information Value Date Recorded Sex Assigned at Not on file Legal Sex Female 7:38 PM CDT Gender Identity Not on file Sexual Orientation Not on file documented as of this encounter Progress Notes * Chapis Shultz PA-C - 04/03/2024 4:54 PM CST Labs ordered TENDER * Adriana Carlson MA - 04/03/2024 3:09 PM CST Patient stated that her Welding Machine Operator Friction order her some labs she would like to know are you going to order labs as well, if they will go [facility]. TENDER documented in this encounter Plan of Treatment Not on file documented as of this encounter Visit Diagnoses Not on filedocumented in this encounter Additional Health Concerns Assessment Noted Time PHQ-9 Depression Total Score: 0 03/09/19 12:46 PM HOSE TENDER documented as of this encounter Care Teams Ortho Nurse Relationship Specialty Start Date End Date Chapis Shultz PA-C [address] [place] [phone] PCP - General PHYSICIAN POSTMASTER 12/09/20 documented as of this encounter
[2024-04-05 09:12] LABS: Alanine Aminotransferase 17 U/L (6-35); Alkaline Phosphatase 75 U/L (38-126); Anion Gap 8 mmol/L (4-12); Aspartate Amino Transferase 21 U/L (14-36); Bilirubin,Total 0.9 mg/dL (0.2-1.3); Blood Urea Nitrogen 13 mg/dL (7-17); Calcium 10.7 mg/dL (8.4-10.2); Carbon Dioxide 31 mmol/L (22-30); Chloride 102 mmol/L (98-107); Cholesterol 186 mg/dL (0-200); Estimated Glomerular Filt Rate 51; Glucose 97 mg/dL (65-110); HDL Direct 56 mg/dL; Magnesium 1.9 mg/dL (1.6-2.3); Potassium 3.8 mmol/L (3.4-5.0); Sodium 141 mmol/L (137-145); Triglycerides 78 mg/dL (<150)
[2024-04-05 09:13] LABS: Hemoglobin A1C 5.8 % (<5.7)
[2024-04-05 09:19] LABS: LDL Cholesterol Direct 83 mg/dL
== END 2024-04-05 07:50 | disposition home or self-care (01) ==
PROVIDERS: PCP Physician Assistant; Visit Provider Internal Medicine Cardiovascular Disease
DX: E78.5 Hyperlipidemia, unspecified (principal); R73.9 Hyperglycemia, unspecified
CPT/HCPCS: 36415; 80053; 80061; 83036; 83735